=== PATIENT | female | born 1970 | race Two or more races ===

== ENCOUNTER → 2024-11-05 | Outpatient (CLI) | payer MEDICAID, SELFPAY ==
--- NOTE | 2024-11-05 16:00 | XR_ITS ---
Examination: Breast ultrasound, unilateral, left complete Date and time of exam: November 05, 2024 1609 hours INDICATIONS: Left breast pain beginning 2 months ago Technique: Real-time velasquez scale ultrasonographic imaging performed left breast including all 4 quadrants as well as nipple retroareolar and axillary region. Findings: No cystic or solid breast mass Left axillary lymph nodes, the largest 26 mm IMPRESSION: BI-RADS Category 2: Benign findings Repeat the breast sonogram in 3 6 months of left breast pain persists
== END | disposition home or self-care (01) ==
LOC: CDIM 15:47
PROVIDERS: Referring Provider Physician Assistant; Visit Provider Physician Assistant
DX: N64.4 Mastodynia (principal)
CPT/HCPCS: 76641

== ENCOUNTER → 2025-04-02 | Outpatient (CLI) | payer MEDICAID, SELFPAY ==
--- NOTE | 2025-04-02 08:15 | XR_ITS ---
Examination: Screening digital mammography, bilateral Computer aided detection 3-D breast Tomosynthesis, bilateral Date and time of exam: April 02, 2025 0812 hours Compared to mammograms dating to November 30, 2021 Indication: Screening, left breast pain 2 months Technique: Nonmagnified MLO, CC views of the breasts to been obtained, reconstructed from 3-D Tomosynthesis images. R2 computer aided detection program utilized for evaluation of suspicious masses and/or abnormal calcifications. 3-D Tomosynthesis images obtained. Findings: Scattered areas of fibroglandular density. Benign calcifications. No interval suspicious masses Impression: BI-RADS category II: Benign Findings. Recommend 1 year follow-up mammogram. Given the patient's presentation, consider left breast sonography follow-up
== END | disposition home or self-care (01) ==
LOC: CDIM 07:56
PROVIDERS: Referring Provider Physician Assistant; Visit Provider Physician Assistant
DX: Z12.31 Encounter for screening mammogram for malignant neoplasm of breast (principal); R92.323 Mammographic fibroglandular density, bilateral breasts; R92.1 Mammographic calcification found on diagnostic imaging of breast
CPT/HCPCS: 77063; 77067